=== PATIENT | female | born 2005 | race Caucasian/White ===

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

== ENCOUNTER 2023-01-05 13:06 | Outpatient (CLI) | payer BC, SELFPAY | END 2023-01-05 13:07 | disposition home or self-care (01) | LOC: AMB 01-26 09:07 | PROVIDERS: Visit Provider Emergency Medicine Emergency Medical Services | DX: R45.851 Suicidal ideations (principal) | CPT/HCPCS: A0425; A0429 ==